=== PATIENT | female | born 1995 | race Caucasian/White ===

== ENCOUNTER 2017-06-05 09:13 | Emergency (ER) | payer BC ==
--- NOTE | 2017-06-05 11:37 | RAD ---
HISTORY: The right elbow trauma COMPARISONS: None VIEWS: 4, Frontal, lateral, and oblique views of the right elbow FINDINGS: BONE DENSITY: Normal. BONES: There is a transverse linear lucency suggestive of a nondisplaced fracture of the olecranon. JOINTS: There is no arthropathy. There is joint effusion. ALIGNMENT: There is no dislocation. SOFT TISSUES: Unremarkable. OTHER FINDINGS: None. IMPRESSION: NONDISPLACED FRACTURE OF THE OLECRANON
--- NOTE | 2017-06-05 11:38 | ED ---
Upper Extremity Pain - HPI Summary HPI Summary: Lt hand dominant pt here w/ Rt elbow pain s/p fall this morning. Slipped on ice and landed on elbow. Limited ROM d/t pain here. Denies numbness, tingling, weakness of this extremity. Can move wrist but some motions trigger pain in elbow. No previous injuries here. Has been icing and took 600mg ibuprofen prior to arrival. No head injury or neuro deficits. LMP last moth. Has IUD in place x 1 year and has had routine menstrual cycles since. - History of Current Complaint Chief Complaint: EDExtremityUpper Stated Complaint: RT ELBOW PAIN Time Seen by Provider: 06/05/17 10:35 Hx Obtained From: Patient, Family/Client Services Analyst - male partner PMH/Surg Hx/FS Hx/Imm Hx Previously Healthy: Yes Endocrine/Hematology History: Reports: Hx Thyroid Disease - takes levothyroxine Denies: Hx Anticoagulant Therapy, Hx Blood Disorders, Hx Anemia, Hx Unexplained Bleeding History: Reports: Other Problems/Disorders - copper IUD in place since x 1 year Neurological History: Reports: Other Neuro Impairments/Disorders - epilepsy - takes lamictal Infectious Disease History: No Infectious Disease History: Denies: Traveled Outside the [place] in Last 30 Days - Family History Known Family History: Positive: None - Social History Occupation: Employed Full-time - [employer] Lives: With Family Alcohol Use: Occasionally Hx Substance Use: No Substance Use Type: Reports: None Hx Tobacco Use: No Smoking Status (MU): Never Smoked Tobacco Review of Systems Constitutional: Negative Negative: Fatigue Eyes: Negative Negative: Photophobia, Blurred Vision, Diplopia ENT: Negative Negative: Epistaxis, Dental Pain Cardiovascular: Negative Respiratory: Negative Gastrointestinal: Negative Positive: no symptoms reported Positive: Arthralgia Skin: Negative Neurological: Negative Psychological: Normal All Other Systems Reviewed And Are Negative: Yes Physical Exam Triage Information Reviewed: Yes Vital Signs On Initial Exam: Initial Vitals Temp Pulse Resp BP Pulse Ox 99.2 F 73 18 108/58 100 06/05/17 09:17 06/05/17 09:17 06/05/17 09:17 06/05/17 09:17 06/05/17 09:17 Vital Signs Reviewed: Yes Appearance: Positive: Well-Appearing, Well-Nourished, Pain Distress - mild Skin: Positive: Warm, Skin Color Reflects Adequate Perfusion, Dry - no edema, no ecchymosis, no skin breakdown over affected area Head/Face: Positive: Normal Head/Face Inspection Eyes: Positive: Normal, EOMI, Conjunctiva Clear ENT: Positive: Hearing grossly normal, Pharynx normal - mucosa moist Respiratory/Lung Sounds: Positive: Breath Sounds Present Cardiovascular: Positive: Pulses are Symmetrical in both Upper and Lower Extremities Abdomen Description: Positive: Nontender, No Organomegaly, Soft Musculoskeletal: Positive: Strength/ROM Intact - phalanges and shoulder on Rt, Limited @ - wrist - supination triggers pain in elbow; limited ROM Rt elbow - holds this is flexed position Neurological: Positive: Normal, Sensory/Motor Intact, Alert, Oriented to Person Place, Time, CN Intact II-III, Reflexes Intact Psychiatric: Positive: Anxious - Christina Coma Scale Coma Scale Total: 15 Procedures - Splinting Hand-Made Type: fiberglass Splint: posterior arm Pre-Proc Neuro Vasc Exam: normal Post-Proc Neuro Vasc Exam: normal Diagnostics - Vital Signs Vital Signs Temp Pulse Resp BP Pulse Ox 06/05/17 09:17 99.2 F 73 18 108/58 100 - Laboratory Lab Statement: Any lab studies that have been ordered have been reviewed, and results considered in the medical decision making process. Course/Dx - Course Course Of Treatment: XR reviewed: nondisplaced fx of olecranon process - Diagnoses Provider Diagnoses: Closed fracture of right olecranon process Discharge - Discharge Plan Condition: Stable Disposition: HOME Patient Education Materials: Elbow Fracture (ED), Splint Care (ED) Forms: *Work Release Referrals: José Miguel Goodwin MD [Medical Doctor] - Additional Instructions: REST, ICE, ELEVATE AND KEEP SPLINT CLEAN, DRY AND IN PLACE UNTIL SEEN BY ORTHOPEDICS You may take ibuprofen alternating with acetaminophen as needed for pain Call orthopedics today to schedule follow-up *If you develop numbness, tingling, weakness, swelling or skin discoloration, loosen WHIT wrap and elevate arm for 20 minutes. If symptoms persist, return to ED
[2017-06-05 12:11] VITALS: BP 112/62
== END 2017-06-05 12:09 | disposition home or self-care (01) ==
LOC: ED 09:13
DX: S52.024A Nondisplaced fracture of olecranon process without intraarticular extension of right ulna, initial encounter for closed fracture (principal); W00.0XXA Fall on same level due to ice and snow, initial encounter; Y92.9 Unspecified place or not applicable
CPT/HCPCS: 99282

== ENCOUNTER 2017-08-06 07:18 | Emergency (ER) | payer BC ==
--- OUTSIDE RECORDS SUMMARY | 2017-08-06 07:28 | XMS REPORT ---
:1995 External Reference #:[id number] Author Organization [email or web address] Address [address] [address] Phone [phone] Care Team Providers Name Role Phone Freddy Alcocer MD Primary Care Physician Unavailable Payers Type Date Identification Numbers Payment Provider Subscriber Commercial Effective: Policy Number: [employer] Juan Carlos Bullock 2016 [id number] PayID: [id number] [address] [address] [place] [address] Problems Date Description Provider Status Onset: 05/23/2017 Migraine with aura Nona Kay M.D. Active Onset: 05/23/2017 Partial epilepsy with impairment of Nona Kay M.D. Active consciousness Family History Date Family Member(s) Problem(s) Comments General Diabetes Father Diabetes Social History Type Date Description Comments Lives With Boyfriend Occupation [employer] Use Currently consumes alcohol Smoking Patient has never smoked Exercise Type/Frequency Exercises sporadically Allergies, Adverse Reactions, Alerts Date Description Reaction Status Severity Comments 05/23/2017 NKDA active Medications Medication Date Status Form Strength Qnty SIG Indications Ordering Provider Lamotrigine 07/08/ Active Tablets 100mg 30tabs 1 by mouth Tricia Hill, 2018 every day Sumatriptan 05/28/ Active Tablets 100mg 12tabs 1/2-1 tab Nona Yin 2018 by mouth Eliza as needed Shannan (max 2-3x per week) Levothyroxine / Active Tablets 100mcg 30tabs 1 by mouth Unknown Sodium 0000 every day Lamotrigine 07/08/ Hx Tablets 100mg 30tabs 1 by mouth G40.909 Gerard 2018 - every day Shannan Saldaña 2017 Lamotrigine 05/23/ Hx Tablets 25mg 120tab 1-4 tabs G40.909 Nona Shanks 2017 - s by mouth Eliza, 07/08/ every day Shannan 2017 as directed Topamax / Hx Tablets 50mg take 1 by Unknown 0000 - mouth every day 2017 Vital Signs Date Vital Result Comment 07/24/2017 Height 68 inches 5'8" Weight 138.00 lb Heart Rate 74 /min Respiratory Rate 14 /min Pain Level 0 BMI (Body Mass Index) 21.0 kg/m2 06/24/2017 Height 68 inches 5'8" Heart Rate 64 /min BP Systolic 110 mmHg BP Diastolic 62 mmHg Respiratory Rate 16 /min Body Temperature 98.0 F Pain Level 0 06/06/2017 Height 68 inches 5'8" Weight 139.00 lb Heart Rate 72 /min Respiratory Rate 13 /min Body Temperature 98.9 F Pain Level 2 BMI (Body Mass Index) 21.1 kg/m2 05/23/2017 Height 68 inches 5'8" Weight 130.00 lb Heart Rate 68 /min BP Systolic 112 mmHg BP Diastolic 68 mmHg Respiratory Rate 14 /min BMI (Body Mass Index) 19.8 kg/m2 Results Description No Information Procedures Date CPT Code Description Status 06/06/2017 96258 FX Ulna Proximal (Olecranon) Closed Treatment W/O Completed Manipulation 05/31/2017 90142 EEG Recording Awake & Asleep Completed Encounters Type Date Location Provider CPT E/M Dx Office Visit 05/23/2017 [facility] Nona Kay, [address] G40.909 1:[facility] G43.009 R40.4 Plan of Care Future Appointment(s):10/03/2017 8:30 am - Gerard Saldaña M.D. at [facility]07/24/2017 - Keyanna Abdi M.D.S52.034D Nondisp fx of olecran pro w intartic extn r ulna, 7thDNew Xrays:Elbow Right 2 VWSFollow up: Follow up: As needed
[2017-08-06 07:32] VITALS: BP 103/69
--- NOTE | 2017-08-06 08:13 | RAD ---
INDICATION: Cough and hemoptysis. COMPARISON: Comparison is made with a prior chest x-ray study from October 09, 2007. TECHNIQUE: Dual-energy PA and lateral views of the chest were obtained. FINDINGS: The heart is within normal limits in size. Mediastinal and hilar contours appear within normal limits. The lungs are clear. No pleural effusion is present. IMPRESSION: NO EVIDENCE FOR ACTIVE CARDIOPULMONARY DISEASE.
--- NOTE | 2017-08-06 08:50 | UC ---
Respiratory Complaint HPI - HPI Summary HPI Summary: 22 yo female c/o cough, sore throat, congestion x approx 2 weeks. No fever perse. No rash. No GI issues. Sx improved but yesterday returned. Coughed hard and saw some blood in sputum, prompting visit today. No recent travel. No rash. - History of Current Complaint Chief Complaint: UCGeneralIllness Stated Complaint: COUGH TIRED SORE THROAT Time Seen by Provider: 08/06/17 07:33 Hx Obtained From: Patient Hx Last Menstrual Period: 07/14/17 Pain Intensity: 2 - Allergies/Home Medications Allergies/Adverse Reactions: Allergies Allergy/AdvReac Type Severity Reaction Status Date / Time No Known Allergies Allergy Verified 08/06/17 07:27 Home Medications: Home Medications Levothyroxine TAB* [Synthroid TAB*] 100 mcg PO DAILY 08/06/17 [History Confirmed 08/06/17] lamoTRIgine TAB(*) [Lamictal TAB(*)] 100 mg PO DAILY 08/06/17 [History Confirmed 08/06/17] PMH/Surg Hx/FS Hx/Imm Hx Previously Healthy: Yes Endocrine History: Thyroid Disease Other Endocrine History: thyroid Other History Of: Negative For: Anticoagulant Therapy - Surgical History Surgical History: Yes Surgery Procedure, Year, and Place: appy - Family History Known Family History: Positive: None - Social History Alcohol Use: Occasionally Substance Use Type: None Smoking Status (MU): Never Smoked Tobacco Review of Systems Constitutional: Fatigue Skin: Negative Eyes: Negative ENT: Other - see hpi Respiratory: Cough Cardiovascular: Negative Gastrointestinal: Negative Genitourinary: Negative Motor: Negative Neurovascular: Negative Musculoskeletal: Negative Neurological: Negative Psychological: Negative Is Patient Immunocompromised?: No All Other Systems Reviewed And Are Negative: Yes Physical Exam Triage Information Reviewed: Yes Appearance: Well-Nourished - sitting up conversing in full sentances Vital Signs: Initial Vital Signs Temp 97.8 F 08/06/17 07:29 Pulse 70 08/06/17 07:29 Resp 16 08/06/17 07:29 BP 103/69 08/06/17 07:29 Pulse Ox 100 08/06/17 07:29 Eye Exam: Normal - grossly normal ENT: Positive: Pharyngeal erythema, TMs normal, Uvula midline Neck exam: Normal Neck: Positive: Supple, Nontender, No Lymphadenopathy Respiratory Exam: Other - + rhonchorus cough, bs equal Respiratory: Positive: Chest non-tender, Lungs clear, Normal breath sounds, No respiratory distress, No accessory muscle use Cardiovascular Exam: Normal Cardiovascular: Positive: RRR, No Murmur, Pulses Normal, Brisk Capillary Refill Abdominal Exam: Normal Abdomen Description: Positive: Nontender Musculoskeletal Exam: Normal Musculoskeletal: Positive: Strength Intact, ROM Intact Neurological Exam: Normal - grossly nonfocal Psychological Exam: Normal - conversing easily and appropriately Skin Exam: Normal - non diaphoretic no visible or reported rash UC Diagnostic Evaluation - Laboratory O2 Sat by Pulse Oximetry: 100 Respiratory Course/Dx - Course Course Of Treatment: Declines work note. Reviewed coa / tx plan with pt. Questions as posed answered to the best of my ability. CXR - NAD. reviewed with Ms. Leslie Bullock. - Differential Dx/Diagnosis Provider Diagnoses: Bronchitis with hemoptysis Discharge - Sign-Out/Discharge Documenting (check all that apply): Discharge - Discharge Plan Condition: Stable Disposition: HOME Prescriptions: Albuterol HFA INHALER* [Ventolin HFA Inhaler*] 1 - 2 puff INH Q6H PRN #1 mdi PRN Reason: Wheezing Azithromyxin DEBORAH (NF) [Z-Deborah (Zithromax) 250 mg tabs #6] 2 tab PO .TODAY, THEN 1 DAILY #6 tab Patient Education Materials: Acute Bronchitis (ED) Referrals: Freddy Alcocer MD [Primary Care Provider] - Additional Instructions: Follow up with your primary care physician, Dr. Alcocer, per routine. Please call this week for appointment if not better. If your condition detioriates or you develop new symptoms, please seek medical attention. - Billing Disposition and Condition Condition: STABLE Disposition: HOME
== END 2017-08-06 08:50 | disposition home or self-care (01) ==
LOC: UCEAST 07:18
DX: J40 Bronchitis, not specified as acute or chronic (principal); R04.2 Hemoptysis; E07.9 Disorder of thyroid, unspecified
CPT/HCPCS: 71046; 87502; 87651; 99212; G0463

== ENCOUNTER 2018-03-17 07:31 | Emergency (ER) | payer BC ==
[2018-03-17 07:41] VITALS: BP 119/65
--- NOTE | 2018-03-17 07:57 | UC ---
Throat Pain/Nasal Han HPI - HPI Summary HPI Summary: 22-year-old woman comes to clinic today with a chief complaint of coughing up sputum that has blood in it. It's been going on for a month. She has a sore throat. She does not feel like there is an infection in her chest. Denies any sinus pressure. She is not a smoker. No fevers or chills. - History of Current Complaint Chief Complaint: UCRespiratory Stated Complaint: SORE THROAT Time Seen by Provider: 03/17/18 07:44 Hx Last Menstrual Period: 03/05/18 Pain Intensity: 3 - Allergies/Home Medications Allergies/Adverse Reactions: Allergies Allergy/AdvReac Type Severity Reaction Status Date / Time No Known Allergies Allergy Verified 03/17/18 07:41 PMH/Surg Hx/FS Hx/Imm Hx Endocrine History: Hypothyroidism Neurological History: Seizures Other History Of: Negative For: Anticoagulant Therapy - Surgical History Surgical History: Yes Surgery Procedure, Year, and Place: appy - Family History Known Family History: Positive: None Negative: Seizure Disorder - Social History Alcohol Use: Occasionally Substance Use Type: None Smoking Status (MU): Never Smoked Tobacco Review of Systems Constitutional: Negative Skin: Negative Eyes: Negative ENT: Sore Throat, Other - SEE HPI Respiratory: Negative Cardiovascular: Negative Gastrointestinal: Negative Motor: Negative Neurovascular: Negative Musculoskeletal: Negative Neurological: Negative Psychological: Negative Is Patient Immunocompromised?: No All Other Systems Reviewed And Are Negative: Yes Physical Exam Triage Information Reviewed: Yes Appearance: Well-Appearing, No Pain Distress, Well-Nourished Vital Signs: Initial Vital Signs Temp 98.4 F 03/17/18 07:36 Pulse 77 03/17/18 07:36 Resp 18 03/17/18 07:36 BP 119/65 03/17/18 07:36 Pulse Ox 100 03/17/18 07:36 Vital Signs Reviewed: Yes Eye Exam: Normal ENT: Positive: Pharyngeal erythema, TMs normal Neck exam: Normal Neck: Positive: Supple Respiratory Exam: Normal Respiratory: Positive: Lungs clear, Normal breath sounds, No respiratory distress Cardiovascular: Positive: RRR Musculoskeletal Exam: Normal Musculoskeletal: Positive: Strength Intact, ROM Intact Neurological Exam: Normal Neurological: Positive: Alert, Muscle Tone Normal Psychological Exam: Normal Psychological: Positive: Age Appropriate Behavior Skin Exam: Normal Throat Pain/Nasal Course/Dx - Course Course Of Treatment: The cause of the phlegm with blood in it most likely is postnasal drip from the sinusitis. We'll treat as a sinusitis and recommended saline nasal spray and a Wanda pot. If the condition persists she should get rechecked by her primary care doctor. No obvious chest symptoms by history or exam today. - Differential Dx/Diagnosis Provider Diagnoses: SINUSITIS Discharge - Sign-Out/Discharge Documenting (check all that apply): Patient Departure All imaging exams completed and their final reports reviewed: No Studies - Discharge Plan Condition: Stable Disposition: HOME Prescriptions: Amoxicillin/Clavulanate TAB* [Augmentin TAB 875*] 875 mg PO BID #20 tab Patient Education Materials: Sinusitis (ED) Referrals: Freddy Alcocer MD [Primary Care Provider] - Additional Instructions: FOLLOW UP WITH YOUR DOCTOR IF NOT COMPLETELY IMPROVED. GET RECHECKED FOR ANY WORSENING OF YOUR CONDITION OR QUESTIONS OR CONCERNS. - Billing Disposition and Condition Condition: STABLE Disposition: Home
== END 2018-03-17 08:07 | disposition home or self-care (01) ==
LOC: UCEAST 07:31
DX: J32.9 Chronic sinusitis, unspecified (principal); J40 Bronchitis, not specified as acute or chronic
CPT/HCPCS: 99212; G0463

== ENCOUNTER 2018-12-07 07:15 | Emergency (ER) | payer SELFPAY ==
--- OUTSIDE RECORDS SUMMARY | 2018-12-07 07:23 | XMS REPORT | Continuity of Care Document ---
:1995 External Reference #:[id number] Author Name Nichole Clarke Care Team Providers Name Role Phone Freddy Alcocer MD Primary Care Physician Unavailable Payers Date Identification Numbers Payment Provider Subscriber Effective: 2016 Policy Number: [id number] [employer] Juan Carlos Bullock PayID: [id number] [address] [address] [place] [id number] Problems Active Problems Provider Date Migraine with aura oNna Kay M.D. Onset: 05/23/2017 Partial epilepsy with impairment of Nona Kay M.D. Onset: 05/23/2017 consciousness Stress fracture of metatarsal bone Rosalio Person MD Onset: 09/03/2018 Headache Gerard Saldaña M.D. Onset: 11/29/2017 Migraine without aura, not refractory Gerard Saldaña M.D. Onset: 2017 Epilepsy Gerard Saldaña M.D. Onset: 10/03/2017 Family History Date Family Member(s) Observation Comments General Diabetes Father Diabetes Social History Type Date Description Comments Sex Unknown Lives With Boyfriend Occupation Research Tech ETOH Use Currently consumes alcohol weekly Tobacco Use Start: Unknown Patient has never smoked Smoking Status Reviewed: 11/10/18 Patient has never smoked Exercise Type/Frequency Exercises sporadically Allergies, Adverse Reactions, Alerts Description No Known Drug Allergies Medications Active Medications SIG Qnty Indications Ordering Provider Date Naproxen 1 by mouth twice 30tabs Rosalio Person MD 10/03/2018 500mg Tablets a day Lamotrigine 1 tablet in in 60tabs Benjamin Costello, 11/29/2017 100mg Tablets the morning and N.P. 1 tablet at night Levothyroxine Sodium 1 by mouth every 30tabs Unknown day 100mcg Tablets Riboflavin 1 by mouth every Unknown 400mg Tablets day History Medications Lamotrigine 1 by mouth 30tabs G40.909 Gerard Saldaña, 07/08/2017 - 100mg every day M.D. 07/07/2017 Tablets Lamotrigine 1 by mouth 30tabs Gerard Saldaña, 07/08/2017 - 100mg every day M.D. 11/29/2017 Tablets Sumatriptan 1/2-1 tab by 12tabs Nona Kay, 05/28/2017 - Succinate mouth as needed M.D. 10/02/2017 100mg (max 2-3x per Tablets week) Lamotrigine 1-4 tabs by 120tabs G40.909 Nona Kay, 05/23/2017 - 25mg mouth every day M.D. 07/08/2017 Tablets as directed Topamax take 1 by mouth Unknown - 50mg every day 05/22/2017 Tablets Turmeric 1 tab everyday Unknown - 450mg Unknown Capsules Vital Signs Date Vital Result Comment 11/10/2018 8:13am Height 68 inches 5'8" Weight 135.00 lb Heart Rate 80 /min Respiratory Rate 14 /min Body Temperature 97.3 F Pain Level 3 BMI (Body Mass Index) 20.5 kg/m2 09/22/2018 2:45pm Height 68 inches 5'8" Heart Rate 74 /min BP Systolic 104 mmHg BP Diastolic 72 mmHg Respiratory Rate 16 /min Body Temperature 98.7 F Pain Level 0 09/03/2018 3:40pm Height 68 inches 5'8" Weight 136.00 lb Heart Rate 64 /min BP Systolic 110 mmHg BP Diastolic 66 mmHg Body Temperature 97.6 F Pain Level 0 BMI (Body Mass Index) 20.7 kg/m2 05/23/2018 8:08am Height 68 inches 5'8" Weight 136.25 lb Heart Rate 66 /min BP Systolic 118 mmHg BP Diastolic 76 mmHg BMI (Body Mass Index) 20.7 kg/m2 01/16/2018 8:27am Height 68 inches 5'8" Weight 130.00 lb Heart Rate 60 /min BP Systolic 118 mmHg BP Diastolic 70 mmHg Respiratory Rate 14 /min BMI (Body Mass Index) 19.8 kg/m2 11/29/2017 8:08am Height 68 inches 5'8" Weight 132.00 lb Heart Rate 72 /min BP Systolic 110 mmHg BP Diastolic 68 mmHg BMI (Body Mass Index) 20.1 kg/m2 10/03/2017 8:36am Height 68 inches 5'8" Weight 135.00 lb Heart Rate 72 /min BP Systolic Sitting 102 mmHg BP Diastolic Sitting 62 mmHg Respiratory Rate 16 /min BMI (Body Mass Index) 20.5 kg/m2 07/24/2017 8:28am Height 68 inches 5'8" Weight 138.00 lb Heart Rate 74 /min Respiratory Rate 14 /min Pain Level 0 BMI (Body Mass Index) 21.0 kg/m2 06/24/2017 8:21am Height 68 inches 5'8" Heart Rate 64 /min BP Systolic 110 mmHg BP Diastolic 62 mmHg Respiratory Rate 16 /min Body Temperature 98.0 F Pain Level 0 06/06/2017 2:49pm Height 68 inches 5'8" Weight 139.00 lb Heart Rate 72 /min Respiratory Rate 13 /min Body Temperature 98.9 F Pain Level 2 BMI (Body Mass Index) 21.1 kg/m2 05/23/2017 12:48pm Height 68 inches 5'8" Weight 130.00 lb Heart Rate 68 /min BP Systolic 112 mmHg BP Diastolic 68 mmHg Respiratory Rate 14 /min BMI (Body Mass Index) 19.8 kg/m2 Results Test Date Facility Test Result H/L Range Note Comp Metabolic Panel 06/27/2018 [facility] Sodium 138 mmol/L N 135-145 [address] [place] [address] [phone] Potassium 4.0 mmol/L N 3.5-5.0 Chloride 107 mmol/L N 101-111 Co2 Carbon Dioxide 22 mmol/L N 22-32 Anion Gap 9 mmol/L N 2-11 Calcium 9.5 mg/dL N 8.6-10.3 Albumin 4.5 g/dL N 3.2-5.2 Total Bilirubin 0.70 mg/dL N 0.2-1.0 Glucose 77 mg/dL N 70-100 Blood Urea Nitrogen 15 mg/dL N 6-24 Creatinine 0.65 mg/dL N 0.51-0.95 BUN/Creatinine Ratio 23.1 High 8-20 Total Protein 6.9 g/dL N 6.4-8.9 Globulin 2.4 g/dL N 2-4 Albumin/Globulin Ratio 1.9 N 1-3 Alkaline Phosphatase 41 U/L N 34-104 Alt 12 U/L N 7-52 Ast 15 U/L N 13-39 Egfr Non- 111.1 >60 Egfr 134.4 >60 1 CBC Auto Diff 06/27/2018 [facility] White Blood 3.5 10^3/uL N 3.5-10.[address] [place] [address] [phone] Red Blood Count 4.40 10^6/uL N 4.00-5.40 Hemoglobin 13.0 g/dL N 12.0-16.0 Hematocrit 39 % N 35-47 Mean Corpuscular Volume 89 fL N 80-97 Mean Corpuscular Hemoglobin 30 pg N 27-31 Mean Corpuscular HGB Conc 33 g/dL N 31-36 Red Cell Distribution Width 14 % N 10.5-15 Platelet Count 219 10^3/uL N 150-450 Mean Platelet Volume 7.7 fL N 7.4-10.4 Abs Neutrophils 1.8 10^3/uL N 1.5-7.7 Abs Lymphocytes 1.2 10^3/uL N 1.0-4.8 Abs Monocytes 0.3 10^3/uL N 0-0.8 Abs Eosinophils 0.1 10^3/uL N 0-0.6 Abs Basophils 0 10^3/uL N 0-0.2 Abs Nucleated RBC 0 10^3/uL Granulocyte % 53.0 % Lymphocyte % 34.0 % Monocyte % 9.5 % Eosinophil % 2.3 % Basophil % 1.2 % Nucleated Red Blood Cells % 0.1 Laboratory test 06/27/2018 [facility] Lamotrigine 3.0 g/mL 2.5 - [address] (Lamictal) [address] [place] [address] [phone] CBC Auto Diff 10/22/2017 [facility] White Blood 4.1 10^3/uL N 3.5-10.[address] [place] [address] [phone] Red Blood Count 4.58 10^6/uL N 4.0-5.4 Hemoglobin 13.7 g/dL N 12.0-16.0 Hematocrit 41 % N 35-47 Mean Corpuscular Volume 90 fL N 80-97 Mean Corpuscular Hemoglobin 30 pg N 27-31 Mean Corpuscular HGB Conc 33 g/dL N 31-36 Red Cell Distribution Width 13 % N 10.5-15 Platelet Count 175 10^3/uL N 150-450 Mean Platelet Volume 7.9 um3 N 7.4-10.4 Abs Neutrophils 2.0 10^3/uL N 1.5-7.7 Abs Lymphocytes 1.5 10^3/uL N 1.0-4.8 Abs Monocytes 0.4 10^3/uL N 0-0.8 Abs Eosinophils 0.2 10^3/uL N 0-0.6 Abs Basophils 0 10^3/uL N 0-0.2 Abs Nucleated RBC 0 10^3/uL Granulocyte % 48.7 % N 38-83 Lymphocyte % 36.1 % N 25-47 Monocyte % 10.2 % High 0-7 Eosinophil % 4.1 % N 0-6 Basophil % 0.9 % N 0-2 Nucleated Red Blood Cells % 0.1 Comp Metabolic Panel 10/22/2017 [facility] Sodium 140 mmol/L N 139-145 [address] [place] [address] [phone] Potassium 4.0 mmol/L N 3.5-5.0 Chloride 108 mmol/L N 101-111 Co2 Carbon Dioxide 22 mmol/L N 22-32 Anion Gap 10 mmol/L N 2-11 Glucose 81 mg/dL N 70-100 Blood Urea Nitrogen 13 mg/dL N 6-24 Creatinine 0.70 mg/dL N 0.51-0.95 BUN/Creatinine Ratio 18.6 N 8-20 Calcium 9.4 mg/dL N 8.6-10.3 Total Protein 7.3 g/dL N 6.4-8.9 Albumin 4.6 g/dL N 3.2-5.2 Globulin 2.7 g/dL N 2-4 Albumin/Globulin Ratio 1.7 N 1-3 Total Bilirubin 0.60 mg/dL N 0.2-1.0 Alkaline Phosphatase 35 U/L N 34-104 Alt 9 U/L N 7-52 Ast 14 U/L N 13-39 Egfr Non- 102.8 >60 Egfr 132.2 >60 3 Laboratory test 10/22/2017 [facility] Lamotrigine 3.2 g/mL 2.5 - [address] (Lamictal) [address] [place] [address] [phone] Rheumatoid Factor < 10 IU/mL N <15 C Reactive Protein 1.10 mg/L N < 5.00 5 Vitamin D Total 25(Oh) 26.1 ng/mL N 20-50 Cyclic Citrullinated Pep Igg <15.6 U 6 Hla B27 10/22/2017 [facility] Hla B27 Negative [address] [place] [address] [phone] Hla B27 Interp See Comment 8 1 Because ethnic data is not always readily available, this report includes an eGFR for both -Americans and non- Americans. The National Kidney Disease Education Program (NKDEP) does not endorse the use of the MDRD equation for patients that are not between the ages of 18 and 70, are , have extremes of body size, muscle mass, or nutritional status, or are non- or non-. According to the National Kidney Foundation, irrespective of diagnosis, the stage of the disease is based on the level of kidney function: Stage Description GFR(mL/min/1.73 m(2)) 1 Kidney damage with normal or decreased GFR 90 2 Kidney damage with mild decrease in GFR 60-89 3 Moderate decrease in GFR 30-59 4 Severe decrease in GFR 15-29 5 Kidney failure <15 (or dialysis) 2 ADDITIONAL INFORMATION This test was developed and its performance characteristics determined by [facility] in a manner consistent with CLIA requirements. This test has not been cleared or approved by the U.S. Food and Drug Administration. Test Performed by: [facility] [address] [place] [address] 3 Because ethnic data is not always readily available, this report includes an eGFR for both -Americans and non- Americans. The National Kidney Disease Education Program (NKDEP) does not endorse the use of the MDRD equation for patients that are not between the ages of 18 and 70, are , have extremes of body size, muscle mass, or nutritional status, or are non- or non-. According to the National Kidney Foundation, irrespective of diagnosis, the stage of the disease is based on the level of kidney function: Stage Description GFR(mL/min/1.73 m(2)) 1 Kidney damage with normal or decreased GFR 90 2 Kidney damage with mild decrease in GFR 60-89 3 Moderate decrease in GFR 30-59 4 Severe decrease in GFR 15-29 5 Kidney failure <15 (or dialysis) 4 ADDITIONAL INFORMATION This test was developed and its performance characteristics determined by [facility] in a manner consistent with CLIA requirements. This test has not been cleared or approved by the U.S. Food and Drug Administration. Test Performed by: [facility] [address] [place] [address] 5 Acute inflammation: >10.00 6 REFERENCE VALUE <20.0 (Negative) Test Performed by: [facility] - [address] [address] 7 REFERENCE VALUE Not Applicable 8 RESULT: HLA-B27 antigen was not detected. ADDITIONAL INFORMATION Method: Flow Cytometry Performing Laboratory CLIA# [id number] Test Performed by: [facility] - [address] [address] Procedures Date Code Description Status 06/06/2017 87207 FX Ulna Proximal (Olecranon) Closed Treatment W/O Completed Manipulation 05/31/2017 82499 EEG Recording Awake & Asleep Completed Encounters Type Date Location Provider Dx Diagnosis Office Visit 09/22/2018 Orthopedic Joey Mendoza.671 Pain in right 2:15p [facility] foot M71.571 Oth bursitis, not elsewhere classified, right ankle and foot Office Visit 09/03/2018 3:15p Orthopedic Rosalio Raza, M84.374A Stress Services Of fracture, right Jalen foot, initial encounter for fracture M79.671 Pain in right foot M25.474 Effusion, right foot Office Visit 05/23/2018 Sandy Gee G40.909 Epilepsy, unsp, 8:00a Rowena Saldaña M.D. not intractable, [facility] [employer] without status epilepticus G43.009 Migraine w/o aura, not intractable, w/o status migrainosus Office Visit 01/16/2018 Sandy Gee G40.909 Epilepsy, unsp, 8:15a Rowena Saldaña M.D. not intractable, [facility] [employer] without status epilepticus G43.009 Migraine w/o aura, not intractable, w/o status migrainosus Office Visit 11/29/2017 Sandy Gee G40.909 Epilepsy, unsp, 8:00a Rowena Saldaña M.D. not intractable, [facility] [employer] without status epilepticus G43.009 Migraine w/o aura, not intractable, w/o status migrainosus R51 Headache Office Visit 10/03/2017 Sandy Gee G40.909 Epilepsy, unsp, 8:30a Rowena Saldaña M.D. not intractable, [facility] [employer] without status epilepticus G43.009 Migraine w/o aura, not intractable, w/o status migrainosus Office Visit 05/23/2017 Sandy Shanks G40.909 Epilepsy, unsp, 1:00p Rowena Kay M.D. not intractable, [facility] [employer] without status epilepticus G43.009 Migraine w/o aura, not intractable, w/o status migrainosus R40.4 Transient alteration of awareness Plan of Treatment Future Appointment(s):11/24/2018 8:30 am - Benjamin Costello N.P. at [facility]
[2018-12-07 07:28] VITALS: BP 113/66
--- NOTE | 2018-12-07 07:42 | UC ---
Throat Pain/Nasal Han HPI - HPI Summary HPI Summary: Patient is a 23-year-old female who presents to the urgent care with a chief complaint of having sore throat for the last 2 weeks. The patient denies any fever or chills. She has painful swallowing but not difficulty swallowing. She denies any trismus, denies any swelling of the tongue or lips. She has no other complaints. - History of Current Complaint Chief Complaint: UCRespiratory Stated Complaint: SORE THROAT HEADACHE Time Seen by Provider: 12/07/18 07:22 Hx Obtained From: Patient Hx Last Menstrual Period: 11/30/18 Onset/Duration: Gradual Onset Severity: Mild Pain Intensity: 3 - Allergies/Home Medications Allergies/Adverse Reactions: Allergies Allergy/AdvReac Type Severity Reaction Status Date / Time No Known Allergies Allergy Verified 12/07/18 07:28 PMH/Surg Hx/FS Hx/Imm Hx Previously Healthy: Yes Other History Of: Negative For: Anticoagulant Therapy - Surgical History Surgical History: Yes Surgery Procedure, Year, and Place: appendectomy as a child - Family History Known Family History: Positive: Hypertension Negative: Seizure Disorder - Social History Alcohol Use: Occasionally Substance Use Type: None Smoking Status (MU): Never Smoked Tobacco Review of Systems All Other Systems Reviewed And Are Negative: Yes Constitutional: Positive: Negative Skin: Positive: Negative Eyes: Positive: Negative ENT: Positive: Sore Throat Respiratory: Positive: Negative Cardiovascular: Positive: Negative Gastrointestinal: Positive: Negative Genitourinary: Positive: Negative Motor: Positive: Negative Neurovascular: Positive: Negative Musculoskeletal: Positive: Negative Neurological: Positive: Negative Psychological: Positive: Negative Is Patient Immunocompromised?: No Physical Exam - Summary Physical Exam Summary: Vital signs: Reviewed Gen.: Patient is a well developed and nourished female in no acute distress. Patient is sitting comfortably on the stretcher. Head: Normacephalic and atraumatic Eyes: PERRLA, EOMI x2. Ears: Right ear canal and TM WNL Left ear canal and TM WNL Nose Nose with dry mucosa and clear discharge. No sinus tenderness and mouth: Positive pharyngeal erythema with no exudate. Neck: Supple, no bilateral submandibular and anterior cervical lymphadenopathy. No JVD Lungs: CTA B/L CVS: S1 & S2 present. No murmurs appreciated. ABDOMEN: Soft NT w/ positive BS. EXT: FROM x 4 NEURO: A+O X 3. Triage Information Reviewed: Yes Appearance: Well-Appearing Vital Signs: Initial Vital Signs Temp 99.1 F 12/07/18 07:23 Pulse 69 12/07/18 07:23 Resp 18 12/07/18 07:23 BP 113/66 12/07/18 07:23 Pulse Ox 100 12/07/18 07:23 Vital Signs Reviewed: Yes Throat Pain/Nasal Course/Dx - Course Course Of Treatment: Rapid strep: Negative. Therefore believe that the pharyngitis is viral. Therefore the patient was recommended to take ibuprofen or Tylenol for the pain. Patient will be discharged home with follow-up with PCP in the next couple days. This patient was instructed to return to the urgent care or go to the emergency room if any symptoms worsen. Patient understands and agrees. - Differential Dx/Diagnosis Provider Diagnosis: Viral pharyngitis Discharge - Sign-Out/Discharge Documenting (check all that apply): Patient Departure All imaging exams completed and their final reports reviewed: No Studies - Discharge Plan Condition: Stable Disposition: HOME Patient Education Materials: Pharyngitis (ED) Referrals: Freddy Alcocer MD [Primary Care Provider] - Additional Instructions: Take ibuprofen or Tylenol for the pain Increase your fluid intake F/U with PCP in the next 2-3 days Return to the UC if symptoms worsen - Billing Disposition and Condition Condition: STABLE Disposition: Home
[2018-12-07] MEDS ORDERED: Ibuprofen TAB* 600 MG PO ONE (07:52)
== END 2018-12-07 08:14 | disposition home or self-care (01) ==
LOC: UCEAST 07:15
DX: J02.8 Acute pharyngitis due to other specified organisms (principal)
CPT/HCPCS: 87651; 99212; A9270-GY; G0463